=== PATIENT | female | born 1995 | race Caucasian/White ===

== ENCOUNTER 2022-10-23 13:10 | Emergency (ER) | payer OTHER ==
[~2022-10-23] VITALS: Ht 170.2 cm; Wt 58.4 kg
[2022-10-23 13:11] VITALS: BP 137/65
[2022-10-23 16:48] LABS: BASO % 0.5 % (0.0-1.0); EOS % 0.5 % (0.0-3.0); HEMATOCRIT 36.5 % (36.0-47.0); HEMOGLOBIN 12.4 g/dl (12.0-15.5); LYMPH # 1.8 10^3/uL (1.5-5.0); LYMPH % 29.2 % (24.0-44.0); MEAN CORPUSCULAR HEMOGLOBIN 30.2 pg (27.0-33.0); MONO # 0.4 10^3/uL (0.0-0.8); MONO % 6.2 % (2.0-8.0); NEUTROPHILS # 3.9 10^3/uL (1.5-8.5); NEUTROPHILS % 63.3 % (36.0-66.0); PLATELET COUNT, AUTOMATED 200 10^3/uL (150-450); WHITE BLOOD COUNT 6.2 10^3/uL (4.0-10.0)
[2022-10-23] MEDS ORDERED: NITR1CAP11 PO ×2 (17:10→17:49)
[2022-10-23 17:12] LABS: BLOOD UREA NITROGEN 6 MG/DL (9-23); CALCIUM LEVEL 8.6 MG/DL (8.5-10.1); CARBON DIOXIDE LEVEL 21 MMOL/L (20-31); CHLORIDE LEVEL 106 MMOL/L (98-107); CREATININE FOR GFR 0.59 MG/DL (0.55-1.30); GLOMERULAR FILTRATION RATE > 60.0 (>60); GLUCOSE, FASTING 115 MG/DL (60-100); POTASSIUM SERUM 3.9 MMOL/L (3.5-5.1); SODIUM LEVEL 138 MMOL/L (136-145)
[2022-10-23 17:41] LABS: HCG, SERUM QUANTITATIVE 106205.9 MIU/ML (<4.2)
[2022-10-23 18:09] LABS: GC DNA AMPLIFICATION NEGATIVE (NEGATIVE)
== END 2022-10-23 18:10 | disposition home or self-care (01) ==
LOC: M ED 13:10
DX: O23.91 Unspecified genitourinary tract infection in pregnancy, first trimester (principal); O20.8 Other hemorrhage in early pregnancy; Z3A.08 8 weeks gestation of pregnancy

== ENCOUNTER 2023-02-12 08:56 | Outpatient (CLI) | payer OTHER ==
[~2023-02-12] VITALS: Ht 170.2 cm; Wt 62.8 kg
[~2023-02-12 08:56] MED LIST: NITR1CAP11 PO
[2023-02-12 09:16] VITALS: BP 118/77
[2023-02-12] MEDS ORDERED: PRENTAB9 PO (09:27)
[2023-02-12] MEDS ORDERED: HOME MED LIST COMPLETE! XX SCH (09:30)
[2023-02-12] MEDS ORDERED: MAG Sulf (L&D) 4 GM/100 ML 4 GM in IV 1 EA IV ONE (10:10)
[2023-02-12] MEDS ORDERED: BETAMETHASONE SOLUSPAN 6MG/ML 5ML VIAL IM SCH (10:10)
[2023-02-12] MEDS ORDERED: AZITHROMYCIN 250MG TABLET PO ONE (10:20)
[2023-02-12] MEDS ORDERED: MAG Sulf (OBGYN) 20GM/500ML 20,000 MG in IV 1 EA IV SCH (10:30)
[2023-02-12 10:39] VITALS: BP 121/76
[2023-02-12 10:55] VITALS: BP 112/74
[2023-02-12] MEDS ORDERED: AMPICILLIN SOD 2 GM in D5W MINI-BAG PLUS 100 ML IV SCH (11:00)
[2023-02-12 11:10] VITALS: BP 114/76
[2023-02-12 11:25] VITALS: BP 115/76
[2023-02-12 11:40] VITALS: BP 117/79
== END 2023-02-12 12:10 | disposition other institution (70) ==
LOC: M LDO 08:56
PROVIDERS: ATTEND Obstetrics & Gynecology
DX: O42.912 Preterm premature rupture of membranes, unspecified as to length of time between rupture and onset of labor, second trimester (principal); Z3A.24 24 weeks gestation of pregnancy; O34.02 Maternal care for unspecified congenital malformation of uterus, second trimester
CPT/HCPCS: 59025; 76815; 87081; 87635; G0463; J0290; J0702; J3475

== ENCOUNTER 2025-05-03 20:22 | Inpatient (IN) | payer OTHER ==
[~2025-05-03] VITALS: Ht 170.2 cm; Wt 67.3 kg
[~2025-05-03 20:22] MED LIST changes: +NITR100C3 PO; -NITR1CAP11 PO; +PRENTAB9 PO
[2025-05-03] MEDS ORDERED: OXYTOCIN INJ 10UNITS/ML 1ML VIAL As Ordered ONE (21:00)
[2025-05-03] MEDS ORDERED: ONDANSETRON 4MG 2ML VIAL As Ordered ONE (21:00)
[2025-05-03] MEDS ORDERED: MORPHINE PRES-FREE INJ 10 MG/10 ML VIAL As Ordered ONE (21:00)
[2025-05-03] MEDS ORDERED: dexAMETHasone 4 MG/ML 1 ML VIAL As Ordered ONE (21:00)
[2025-05-03] MEDS ORDERED: OXYTOCIN 30UNITS IN 0.9% NaCl 500ML IV BAG As Ordered ONE (21:00)
[2025-05-03] MEDS: LACTATED RINGER'S 1000 ML IV STA (21:01)
[2025-05-03] MEDS ORDERED: CARBOPROST TROMETHAMINE 250 MCG/ML AMP IM PRN (21:05)
[2025-05-03] MEDS ORDERED: LR 1,000 ML IV SCH (21:05)
[2025-05-03] MEDS ORDERED: METHYLERGONOVINE MALEATE 0.2 MG/ML 1 ML VIAL IM PRN (21:05)
[2025-05-03] MEDS: ceFAZolin SODIUM 2 GM in DEXTROSE 5% (D5W) ADV/MINI-BAG 50 ML IV ONE (21:05)
[2025-05-03] MEDS ORDERED: OXYTOCIN DRIP 30 UNITS in IV 1 EA IV PRN (21:05)
[2025-05-03] MEDS ORDERED: TRANEXAMIC ACID INJection 1,000 MG in NS 100 ML IV PRN (21:05)
[2025-05-03 21:25] LABS: PLATELET COUNT, AUTOMATED 283 10^3/uL (150-450)
[2025-05-03] MEDS: AZITHROMYCIN INJ 500 MG, VIAL MATE ADAPTER 1 EACH in NS 250 ML IV ONE (21:26)
[2025-05-03] MEDS: BICITRA 30 ML SOLN UDC PO ONE (21:26)
[2025-05-03] MEDS ORDERED: ACETAMINOPHEN 1000MG/100ML IV BAG As Ordered ONE (22:12)
[2025-05-03 22:15] LABS: HIV 1&2 SCREEN NEGATIVE (NEGATIVE)
[2025-05-03 22:23] LABS: HEPATITIS C VIRUS ABY INDEX < 0.02 INDEX (<0.8)
[2025-05-03] MEDS ORDERED: KETOROLAC 30 MG/ML 1 ML VIAL As Ordered ONE (22:51)
[2025-05-03 23:04] LABS: CORD GAS ABE A -5.1; CORD GAS ABE V -1.2; CORD GAS HCO3 A 21.7 MMOL/L; CORD GAS HCO3 V 24.2 MMOL/L; CORD GAS O2 SAT A < 15.0 %; CORD GAS O2 SAT V 61.7 %; CORD GAS PCO2 A 46.6 mmHg; CORD GAS PCO2 V 42.7 mmHg; CORD GAS PH A 7.286 UNITS; CORD GAS PH V 7.371 UNITS; CORD GAS PO2 A 10.5 mmHg; CORD GAS PO2 V 24.3 mmHg; CORD GAS SBC V 22.6 MMOL/L; CORD GAS TCO2 A 23.1 MMOL/L; CORD GAS TCO2 V 25.5 MMOL/L
[2025-05-03] MEDS ORDERED: GLYCOPYRROLATE INJ 0.2 MG/ML 2 ML VIAL As Ordered ONE (23:15)
[2025-05-03] MEDS ORDERED: MORPHINE 2 MG/ML 1 ML VIAL IV PRN (23:20)
[2025-05-03] MEDS ORDERED: diphenhydrAMINE 50 MG/ML VIAL IV PRN (23:20)
[2025-05-03] MEDS ORDERED: **NOTE PATIENT COMMENT** MISC XX SCH (23:20)
[2025-05-03] MEDS: SLF 3 ML SYR IV SCH (23:20)
[2025-05-03] MEDS ORDERED: NALOXONE INJ 0.4MG/1ML VIAL IV PRN ×2 (23:20)
[2025-05-03] MEDS ORDERED: PROMETHAZINE 25 MG TAB PO PRN (23:25)
[2025-05-03] MEDS ORDERED: SIMETHICONE 80MG CHEW TAB PO PRN (23:25)
[2025-05-03] MEDS ORDERED: MOM 30 ML SUSPENSION UDC PO PRN (23:25)
[2025-05-03] MEDS: OXYTOCIN DRIP 30 UNITS in IV 1 EA IV ONE (23:41)
[2025-05-04] VITALS (11 sets, daily range): BP systolic 87–127; BP diastolic 50–99; TEMP 97.4; O2SAT 94–97
[2025-05-04] MEDS: SLF 3 ML SYR IV SCH (00:30)
[2025-05-04] MEDS ORDERED: HYDROMORPHONE HCL 0.5 MG/0.5 ML SYRINGE IV PRN (00:30)
[2025-05-04] MEDS ORDERED: **NOTE PATIENT COMMENT** MISC XX SCH (00:30)
[2025-05-04] MEDS ORDERED: NALOXONE INJ 0.4MG/1ML VIAL IV PRN ×2 (00:30)
[2025-05-04] MEDS ORDERED: diphenhydrAMINE 50 MG/ML VIAL IV PRN (00:30)
[2025-05-04] MEDS: KETOROLAC 30 MG/ML 1 ML VIAL IV SCH (04:42)
[2025-05-04 06:46] LABS: PLATELET COUNT, AUTOMATED 246 10^3/uL (150-450)
[2025-05-04] MEDS: PRENATAL VITAMINS CHEWABLE TABLET PO SCH (10:00)
[2025-05-04] MEDS: DOCUSATE SODIUM 100 MG CAPSULE PO SCH (10:00)
[2025-05-04] MEDS: ACETAMINOPHEN 500 MG TAB PO PRN (21:53)
[2025-05-05] MEDS: IBUPROFEN 800 MG TAB PO SCH (01:42)
[2025-05-05 02:19] VITALS: BP 110/55; O2SAT 96
[2025-05-05 05:51] VITALS: BP 103/58; O2SAT 97
[2025-05-05] MEDS: MEASLES,MUMPS,RUBELLA VACCINE INJ (MMR-II) SC.IMMUN ONE (08:47)
[2025-05-05] MEDS: SCOPOLAMINE 1MG TRANSDERMAL PATCH TOP SCH (09:00)
[2025-05-05 10:00] VITALS: BP 119/66; O2SAT 97
[2025-05-05 14:00] VITALS: BP 129/68; O2SAT 97
[2025-05-05 18:00] VITALS: BP 122/69; O2SAT 97
[2025-05-06 06:00] VITALS: BP 113/60; O2SAT 97
== END 2025-05-06 12:25 | disposition home or self-care (01) | DRG 773 ==
LOC: M LDO 20:22 → M LDI 20:59 → M OBS 05-04 00:39
PROVIDERS: ADMIT Obstetrics & Gynecology; ATTEND Obstetrics & Gynecology
PROC: 10D00Z1 Extraction of Products of Conception, Low, Open Approach (ICD-10-PCS; principal; 2025-05-03 21:03)
DX: O34.218 Maternal care for other type scar from previous cesarean delivery (principal); Z3A.37 37 weeks gestation of pregnancy; O99.824 Streptococcus B carrier state complicating childbirth; O42.02 Full-term premature rupture of membranes, onset of labor within 24 hours of rupture; Z37.0 Single live birth